=== PATIENT | female | born 1970 | race Caucasian/White ===

== ENCOUNTER 2016-11-02 16:03 | Emergency (ER) | payer SELFPAY ==
--- NOTE | 2016-11-02 16:29 | Emergency Department Record ---
History of Present Illness - General Chief complaint: Lower Extremity Pain Stated complaint: LEFT LEG PAIN Time Seen by Provider: 11/02/16 16:27 Source: Patient Mode of Arrival: Ambulatory Limitations: No limitations - History of Present Illness Initial comments: 45 yo female presents to ED with a CC of redness and possible bite to the left lower extremity. Patient reports redness to the area that has spread from initial "bite area" 2 days ago, denies fevers, chills, or drainage from the area. Patient denies health problems at her baseline. MD Complaint: Extremity pain Onset/Timin -: Days(s) Location: Left, Lower Leg History of Same: No Radiation: Proximal Severity scale (1-10): 2 Quality: Aching Improves with: Rest Worsens with: Nothing Associated Symptoms: Denies other symptoms - Related Data Previous Rx's Medication Instructions Recorded Clindamycin HCl [Cleocin HCl] 300 mg PO QID #28 capsule 11/02/16 Allergies Allergy/AdvReac Type Severity Reaction Status Date / Time acetaminophen [From Vicodin] Allergy HIVES Verified 11/02/16 16:20 hydrocodone bitartrate Allergy HIVES Verified 11/02/16 16:20 [From Vicodin] Travel Screening - Travel/Exposure Within Last 30 Days Have you traveled within the last 30 days?: No - Travel/Exposure Within Last Year Have you traveled outside the [place] in the last year?: No - Additonal Travel Details Have you been exposed to anyone with a communicable illness?: No - Travel Symptoms Symptom Screening: None Review of Systems Constitutional: Denies: Chills, Fever, Malaise, Night sweats Eyes: Denies: Eye discharge, Eye pain ENT: Denies: Congestion, Ear pain, Epistaxis Respiratory: Denies: Cough, Dyspnea Cardiovascular: Denies: Chest pain, Dyspnea on exertion Endocrine: Denies: Fatigue, Heat or cold intolerance Gastrointestinal: Denies: Abdominal pain, Nausea, Vomiting Genitourinary: Denies: Dysuria, Frequency, Hematuria, Incontinence Musculoskeletal: Denies: Arthralgia, Back pain, Gout, Joint swelling Skin: Reports: Change in color. Denies: Bruising, Change in hair/nails Neurological: Denies: Abnormal gait, Confusion, Headache, Seizure Psychiatric: Denies: Anxiety Hematological/Lymphatic: Denies: Anemia, Blood Clots Past Medical History - SOCIAL HISTORY Smoking Status: Current every day smoker Alcohol Use: None Drug Use: None - RESPIRATORY Hx Respiratory Disorders: No - CARDIOVASCULAR Hx Cardio Disorders: No - NEURO Hx Neuro Disorders: No Hx Headaches: Yes (migraines) - GI Hx GI Disorders: No - Hx Genitourinary Disorders: No - ENDOCRINE Hx Endocrine Disorders: No - MUSCULOSKELETAL Hx Musculoskeletal Disorders: Yes Hx Arthritis: Yes (hands and shoulders) - PSYCH Hx Psych Problems: Yes Hx Anxiety: Yes - HEMATOLOGY/ONCOLOGY Hx Hematology/Oncology Disorders: No Family Medical History Any Significant Family History?: Yes Family Hx Comment (NOT TO BE USED IN PLACE OF ITEMS BELOW): Mom has brain tumor Hx Cancer: Brother/Sister Hx Diabetes: Brother/Sister Hx Resp Disorders: Brother/Sister Physical Exam - General General Appearance: Alert, Oriented x3, Cooperative, No acute distress (smiling , well appearing on examination) Limitations: No limitations - Head Head exam: Atraumatic, Normocephalic, Normal inspection Head exam detail: negative: Abrasion, Contusion, Lucio's sign, General tenderness, Hematoma, Laceration - Eye Eye exam: Normal appearance. negative: Conjunctival injection, Periorbital swelling, Periorbital tenderness, Scleral icterus - ENT Ear exam: negative: Auricular hematoma, Auricular trauma Nasal Exam: negative: Active bleeding, Discharge, Dried blood, Foreign body Mouth exam: negative: Drooling, Laceration, Muffled voice, Tongue elevation - Neck Neck exam: Normal inspection. negative: Meningismus, Tenderness - Respiratory Respiratory exam: Normal lung sounds bilaterally. negative: Rales, Respiratory distress, Rhonchi, Stridor - Cardiovascular Cardiovascular Exam: Regular rate, Normal rhythm, Normal heart sounds - GI/Abdominal GI/Abdominal exam: Soft. negative: Rebound, Rigid, Tenderness - Rectal Rectal exam: Deferred - exam: Deferred - Extremities Extremities exam: Other (0.25 cm lesion to the lateral left infrapatellar region with mild erythema surrounding the area, no induration or fluctuance present.). negative: Calf tenderness, Pedal edema, Tenderness - Back Back exam: Reports: Normal inspection. Denies: CVA tenderness (R), CVA tenderness (L) - Neurological Neurological exam: Alert, Normal gait, Oriented X3 - Psychiatric Psychiatric exam: Normal affect, Normal mood - Skin Skin exam: Erythema. negative: Abrasion Distribution of rash: LLE Description of rash: Erythematous, Macular Course Vital Signs 11/02/16 16:15 Temperature 98.0 F Pulse Rate 94 H Respiratory 20 Rate Blood Pressure 115/77 Pulse Ox 97 - Reevaluation(s) Reevaluation #1: 11/02/16 16:35 Symptoms appear c/w mild cellulitis, will initiate treatment with Clindamycin with instructions for follow-up in 3-5 days with her primary care provider. Patient is otherwise well appearing and stable for discharge at this time. Disposition Disposition: Discharge Clinical Impression: Cellulitis and abscess of left leg Disposition: Home, Self-Care Condition: (2) Stable Instructions: Cellulitis (ED) Additional Instructions: Return to ED if your symptoms worsen or if you have any concerns. Clindamycin as directed. Follow-up with your family doctor in 3-5 days as directed. Prescriptions: Clindamycin HCl [Cleocin HCl] 300 mg PO QID #28 capsule Forms: Patient Portal Access Time of Disposition: 16:29
== END 2016-11-02 16:37 | disposition home or self-care (01) ==
LOC: ER 16:03
DX: L03.116 Cellulitis of left lower limb (principal)
CPT/HCPCS: 99282

== ENCOUNTER 2017-01-31 18:24 | Emergency (ER) | payer SELFPAY ==
--- NOTE | 2017-01-31 18:39 | Emergency Department Record ---
History of Present Illness - General Chief Complaint: Cough Stated Complaint: COUGH Time Seen by Provider: 01/31/17 18:32 Source: Patient Mode of Arrival: Ambulatory Limitations: No limitations - History of Present Illness Initial Comments: The patient is here due to a cough for almost 2 weeks. She does have intermittent sputum production but denies any CP, SOB, or fever. Her significant other was recently diagnosed with bronchitis and got better with a Zpak. Complaint: Cough, Nasal congestion Onset/Timin -: Week(s) Severity: Mild Severity scale (1-10): 4 Consistency: Constant - Related Data Previous Rx's Medication Instructions Recorded Albuterol Sulfate [Proair Hfa] 2 puff IH QID PRN #1 inhaler 01/31/17 Azithromycin [Zithromax] 250 mg PO ASDIR #6 tab 01/31/17 Allergies Allergy/AdvReac Type Severity Reaction Status Date / Time acetaminophen [From Vicodin] Allergy HIVES Verified 11/02/16 16:20 hydrocodone bitartrate Allergy HIVES Verified 11/02/16 16:20 [From Vicodin] Travel Screening - Travel/Exposure Within Last 30 Days Have you traveled within the last 30 days?: No Review of Systems Constitutional: Reports: Malaise. Denies: Chills, Fever Eyes: Denies: Eye discharge ENT: Reports: Congestion Respiratory: Reports: Cough. Denies: Dyspnea, Hemoptysis Past Medical History - SOCIAL HISTORY Smoking Status: Current every day smoker Alcohol Use: Rare Drug Use: None - RESPIRATORY Hx Respiratory Disorders: No - CARDIOVASCULAR Hx Cardio Disorders: No - NEURO Hx Neuro Disorders: Yes Hx Headaches: Yes (migraines) - GI Hx GI Disorders: No - Hx Genitourinary Disorders: No - ENDOCRINE Hx Endocrine Disorders: No - MUSCULOSKELETAL Hx Musculoskeletal Disorders: Yes Hx Arthritis: Yes (hands and shoulders) - PSYCH Hx Psych Problems: Yes Hx Anxiety: Yes - HEMATOLOGY/ONCOLOGY Hx Hematology/Oncology Disorders: No Family Medical History Any Significant Family History?: Yes Family Hx Comment (NOT TO BE USED IN PLACE OF ITEMS BELOW): Mom has brain tumor Hx Cancer: Brother/Sister Hx Diabetes: Brother/Sister Hx Resp Disorders: Brother/Sister Physical Exam - General General Appearance: Alert, Oriented x3, Cooperative, No acute distress - Head Head exam: Atraumatic, Normocephalic, Normal inspection - Eye Eye exam: Normal appearance, PERRL - Neck Neck exam: Normal inspection, Full ROM. negative: Tenderness - Respiratory Respiratory exam: Normal lung sounds bilaterally. negative: Accessory muscle use, Chest wall tenderness, Rales, Respiratory distress, Rhonchi, Stridor - Cardiovascular Cardiovascular Exam: Regular rate, Normal rhythm, Normal heart sounds - GI/Abdominal GI/Abdominal exam: Soft, Normal bowel sounds. negative: Tenderness - Extremities Extremities exam: Normal inspection, Full ROM, Normal capillary refill. negative: Tenderness Course Vital Signs 01/31/17 18:28 Temperature 97.6 F Pulse Rate 91 H Respiratory 20 Rate Blood Pressure 121/69 Pulse Ox 95 - Reevaluation(s) Reevaluation #1: I explained to the patient she should stop smoking and I do believe she could benefit from the oral Abx and an inhaller. 01/31/17 18:38 Disposition Disposition: Discharge Clinical Impression: Bronchitis Disposition: Home, Self-Care Condition: (1) Good Instructions: Cold Symptoms (ED) Additional Instructions: Please take the Zpak and Albuterol as directed. Please stop smoking. Please see your PCP if not better in 3 days. Return to the ER for any increasing cough, fever, chills, or any trouble breathing. Prescriptions: Albuterol Sulfate [Proair Hfa] 2 puff IH QID PRN #1 inhaler PRN Reason: Cough And Difficulty Breathing Azithromycin [Zithromax] 250 mg PO ASDIR #6 tab Forms: Patient Portal Access Time of Disposition: 18:39 Quality - Quality Measures Quality Measures: N/A - Blood Pressure Screening View Details: Yes Blood Pressure Classification: Pre-Hypertensive BP Reading Systolic Measurement: 121 Diastolic Measurement: 69 Screening for High Blood Pressure: < Pre-Hypertensive BP, F/U Documented > [ G8950] Pre-Hypertensive Follow-up Interventions: Follow-up with rescreen every year.
== END 2017-01-31 18:46 | disposition home or self-care (01) ==
LOC: ER 18:24
DX: J20.9 Acute bronchitis, unspecified (principal); F17.210 Nicotine dependence, cigarettes, uncomplicated
CPT/HCPCS: 99282

== ENCOUNTER 2018-07-15 16:58 | Emergency (ER) | payer SELFPAY ==
--- NOTE | 2018-07-15 17:53 | Emergency Department Record ---
History of Present Illness - General Chief complaint: Swelling of legs Stated complaint: ABDOMINAL SWELLING Time Seen by Provider: 07/15/18 17:49 Source: Patient Mode of Arrival: Wheelchair Limitations: No limitations - History of Present Illness Initial comments: 47 yo female presents to ED for evaluation of lower extremity swelling "extending up to the abdomen". Patient denies previous history of symptoms, reports that her symptoms began 2 days ago. Patient denies health problems at her baseline but has not seen a PCP in several years. Patient denies chest discomfort or difficulty in breathing. MD Complaint: Extremity swelling Onset/Timin -: Days(s) Location: Bilateral, Ankle, Foot History of Same: No Consistency: Constant, Other ("feels tight") Improves with: Nothing Worsens with: Nothing Associated Symptoms: Rash - Related Data Previous Rx's Medication Instructions Recorded Albuterol Sulfate [Proair Hfa] 2 puff IH QID PRN #1 inhaler 01/31/17 Allergies Allergy/AdvReac Type Severity Reaction Status Date / Time acetaminophen [From Vicodin] Allergy HIVES Verified 11/02/16 16:20 hydrocodone bitartrate Allergy HIVES Verified 11/02/16 16:20 [From Vicodin] Travel Screening - Travel/Exposure Within Last 30 Days Have you traveled within the last 30 days?: No - Travel/Exposure Within Last Year Have you traveled outside the [place] in the last year?: No - Additonal Travel Details Have you been exposed to anyone with a communicable illness?: No - Travel Symptoms Symptom Screening: Rash Review of Systems Constitutional: Denies: Chills, Fever, Malaise, Night sweats Eyes: Denies: Eye discharge, Eye pain, Photophobia ENT: Denies: Congestion, Ear pain, Epistaxis Respiratory: Denies: Cough, Dyspnea Cardiovascular: Reports: Edema. Denies: Chest pain, Dyspnea on exertion Endocrine: Denies: Fatigue, Heat or cold intolerance Gastrointestinal: Reports: Other ("abdominal swelling"). Denies: Abdominal pain , Nausea, Vomiting Genitourinary: Denies: Incontinence, Retention Musculoskeletal: Denies: Arthralgia, Back pain, Gout, Joint swelling Skin: Denies: Bruising, Change in color Neurological: Denies: Abnormal gait, Confusion, Headache, Tingling, Tremors Psychiatric: Denies: Anxiety Hematological/Lymphatic: Denies: Anemia, Blood Clots Past Medical History - SOCIAL HISTORY Smoking Status: Current every day smoker Alcohol Use: None Drug Use: None - RESPIRATORY Hx Respiratory Disorders: No - CARDIOVASCULAR Hx Cardio Disorders: No - NEURO Hx Neuro Disorders: Yes Hx Headaches: Yes (migraines) - GI Hx GI Disorders: No Comment:: patient c/o abdominal pain today 07/15/18 - Hx Genitourinary Disorders: No - ENDOCRINE Hx Endocrine Disorders: No - MUSCULOSKELETAL Hx Musculoskeletal Disorders: Yes Hx Arthritis: Yes (hands and shoulders) - PSYCH Hx Psych Problems: Yes Hx Anxiety: Yes - HEMATOLOGY/ONCOLOGY Hx Hematology/Oncology Disorders: No Family Medical History Any Significant Family History?: Yes Family Hx Comment (NOT TO BE USED IN PLACE OF ITEMS BELOW): Mom has brain tumor Hx Cancer: Brother/Sister Hx Diabetes: Brother/Sister Hx Resp Disorders: Brother/Sister Physical Exam - General General Appearance: Alert, Oriented x3, Cooperative, No acute distress Limitations: No limitations - Head Head exam: Atraumatic, Normocephalic, Normal inspection Head exam detail: negative: Abrasion, Contusion, Lucio's sign, General tenderness, Hematoma, Laceration - Eye Eye exam: Normal appearance. negative: Conjunctival injection, Periorbital swelling, Periorbital tenderness, Scleral icterus - ENT Ear exam: negative: Auricular hematoma, Auricular trauma Nasal Exam: negative: Active bleeding, Discharge, Dried blood, Foreign body Mouth exam: negative: Drooling, Laceration, Muffled voice, Tongue elevation - Neck Neck exam: Normal inspection. negative: Meningismus, Tenderness - Respiratory Respiratory exam: Normal lung sounds bilaterally. negative: Respiratory distress, Rhonchi, Stridor, Wheezes - Cardiovascular Cardiovascular Exam: Regular rate, Normal rhythm, Normal heart sounds - GI/Abdominal GI/Abdominal exam: Soft. negative: Distended, Rebound, Rigid, Tenderness - Rectal Rectal exam: Deferred - exam: Deferred - Extremities Extremities exam: Pedal edema (1+ bilateral edema). negative: Calf tenderness, Tenderness - Back Back exam: Denies: CVA tenderness (R), CVA tenderness (L) - Neurological Neurological exam: Alert, Normal gait, Oriented X3 - Psychiatric Psychiatric exam: Normal affect, Normal mood - Skin Skin exam: Normal color. negative: Abrasion Type of lesion: negative: abrasion Course Vital Signs 07/15/18 17:02 Temperature 98.0 F Pulse Rate 56 L Respiratory 18 Rate Blood Pressure 143/90 Pulse Ox 99 - Reevaluation(s) Reevaluation #1: 07/15/18 18:16 EKG: NSR 50 Normal axis, normal intervals No acute ST-T wave changes Reevaluation #2: 07/15/18 18:20 Laboratory studies were reviewed, BNP 527, labs are otherwise grossly unremarkable for an acute process. Renal function appears normal Examination appears c/w mild pedal. Discussed with the patient treatment including elevation as well as the importance of establishing with a PCP for further evaluation. Patient appears stable for discharge at this time. Medical Decision Making - Lab Data Result diagrams: 07/15/18 17:00 07/15/18 17:00 Disposition Disposition: Discharge Clinical Impression: Pedal edema Disposition: Home, Self-Care Condition: (2) Stable Instructions: Leg Edema (ED) Additional Instructions: Return to ED if your symptoms worsen or if you have any concerns. Elevated lower extremities to reduce swelling. Follow-up with a primary care provider from the list given for further evaluation of your symptoms. Forms: Patient Portal Access Time of Disposition: 18:22 Quality - Quality Measures Quality Measures: N/A - Blood Pressure Screening Does Patient Have Any of the Following: No Blood Pressure Classification: Hypertensive Reading Systolic Measurement: 143 Diastolic Measurement: 90 Screening for High Blood Pressure: < First Hypertensive BP, F/U Documented > [ G8950] First Hypertensive Follow-up Interventions: Referral to alternative/primary care provider.
[2018-07-15 17:57] LABS: BASO % 0.2 % (0-6); EOS % 1.2 % (0-6); HEMATOCRIT 36.6 % (35.0-47.0); HEMOGLOBIN 11.9 gm/dl (11.6-16.0); LYMPH % 23.9 % (16-45); MEAN CELL VOLUME 96.3 fl (81-97); MEAN CORPUSCULAR HEMOGLOBIN 31.3 pg (27-33); MEAN CORPUSCULAR HGB CONC 32.5 g/dl (32-36); MEAN PLATELET VOLUME 10.3 fl (7.4-10.4); MONO % 8.7 % (0-9); PLATELET COUNT 289 K/uL (130-400); RED CELL DISTRIBUTION WIDTH 13.3 % (11.5-14.5)
[2018-07-15 18:09] LABS: BLOOD UREA NITROGEN 8 mg/dL (6-20); CREATININE 0.5 mg/dL (0.5-0.9); EST GLOMERULAR FILTRATION RATE > 60 mL/min
[2018-07-15 18:10] LABS: TOTAL PROTEIN 6.7 g/dL (6.6-8.7)
[2018-07-15 18:12] LABS: GLUCOSE,RANDOM 95 mg/dL (74-109)
[2018-07-15 18:14] LABS: ALB/GLOB RATIO 1.3 (1.1-1.8); ALBUMIN 3.8 g/dL (4.0-5.0); ALT/SGPT 45 U/L (<33); AST/SGOT 20 U/L (10.0-35.0)
[2018-07-15 18:15] LABS: ALKALINE PHOSPHATASE 50 U/L (45-87)
== END 2018-07-15 18:35 | disposition home or self-care (01) ==
LOC: ER 16:58
DX: R60.0 Localized edema (principal); R10.9 Unspecified abdominal pain; R06.02 Shortness of breath; R11.0 Nausea; R21 Rash and other nonspecific skin eruption; F17.210 Nicotine dependence, cigarettes, uncomplicated
CPT/HCPCS: 80053; 83880; 84484; 85025; 93005; 93010; 99284

== ENCOUNTER 2018-07-17 15:41 | Emergency (ER) | payer SELFPAY ==
[2018-07-17] MEDS ORDERED: IPRATROPIUM/ALBUTEROL (0.5MG/3MG) NEB INH ONE (16:05)
[2018-07-17 16:20] LABS: HEMATOCRIT 34.7 % (35.0-47.0); HEMOGLOBIN 11.3 gm/dl (11.6-16.0); MEAN CELL VOLUME 96.4 fl (81-97); MEAN CORPUSCULAR HGB CONC 32.6 g/dl (32-36); PLATELET COUNT 251 K/uL (130-400); RED CELL DISTRIBUTION WIDTH 13.3 % (11.5-14.5); WHITE BLOOD COUNT W/O DIFF 5.3 K/uL (4.2-12.2)
[2018-07-17 16:22] LABS: MEAN CORPUSCULAR HEMOGLOBIN 31.3 pg (27-33)
[2018-07-17 16:31] LABS: PLATELET ESTIMATE NORMAL (NORMAL)
[2018-07-17 16:32] LABS: BLOOD UREA NITROGEN 10 mg/dL (6-20); CREATININE 0.6 mg/dL (0.5-0.9); EST GLOMERULAR FILTRATION RATE > 60 mL/min
[2018-07-17 16:33] LABS: TOTAL PROTEIN 6.8 g/dL (6.6-8.7)
[2018-07-17 16:35] LABS: GLUCOSE,RANDOM 95 mg/dL (74-109)
[2018-07-17 16:37] LABS: ALB/GLOB RATIO 1.3 (1.1-1.8); ALBUMIN 3.9 g/dL (4.0-5.0); ALT/SGPT 145 U/L (<33); AST/SGOT 133 U/L (10.0-35.0)
[2018-07-17 16:38] LABS: ALKALINE PHOSPHATASE 81 U/L (45-87)
--- NOTE | 2018-07-17 17:01 | Emergency Department Record ---
History of Present Illness - General Chief Complaint: Shortness of breath Stated Complaint: TROY Time Seen by Provider: 07/17/18 15:56 Source: Patient Mode of Arrival: Ambulatory Limitations: No limitations - History of Present Illness Initial Comments: pt here for sob and swelling of her extremities and abd/. it has been getting progressively worse. she has not seen a dr for 20 yrs. she was here 2 days ago for the same MD Complaint: Shortness of breath Onset/Timin -: Days(s) Consistency: Constant Improves With: Nothing Known History Of: Asthma Associated Symptoms: Cough, Orthopnia, Other Treatments Prior to Arrival: Other Treatment Prior to Arrival Comment:: took a friends steriod inhaler - Related Data Home Oxygen Therapy: No Previous Rx's Medication Instructions Recorded Albuterol Sulfate [Proair Hfa] 2 puff IH QID PRN #1 inhaler 01/31/17 Allergies Allergy/AdvReac Type Severity Reaction Status Date / Time acetaminophen [From Vicodin] Allergy HIVES Verified 11/02/16 16:20 hydrocodone bitartrate Allergy HIVES Verified 11/02/16 16:20 [From Vicodin] Travel Screening - Travel/Exposure Within Last 30 Days Have you traveled within the last 30 days?: No - Travel/Exposure Within Last Year Have you traveled outside the [place] in the last year?: No - Additonal Travel Details Have you been exposed to anyone with a communicable illness?: No - Travel Symptoms Symptom Screening: None Review of Systems Reviewed: No additional complaints except as noted below Constitutional: Reports: As per HPI, Weakness. Denies: Chills, Fever, Malaise, Night sweats, Weight change Eyes: Reports: As per HPI. Denies: Eye discharge, Eye pain, Photophobia, Vision change ENT: Reports: As per HPI. Denies: Congestion, Dental pain, Ear pain, Epistaxis , Hearing loss, Throat pain Respiratory: Reports: As per HPI, Cough, Dyspnea, Hemoptysis. Denies: Stridor, Wheezes Cardiovascular: Reports: As per HPI, Dyspnea on exertion, Edema. Denies: Arrhythmia, Chest pain, Murmurs, Orthopnea, Palpitations, Paroxysmal nocturnal dyspnea, Rheumatic Fever, Syncope Endocrine: Reports: As per HPI. Denies: Fatigue, Heat or cold intolerance, Polydipsia, Polyuria Gastrointestinal: Reports: As per HPI, Abdominal pain. Denies: Constipation, Diarrhea, Hematemesis, Hematochezia, Melena, Nausea, Vomiting Genitourinary: Reports: As per HPI. Denies: Abnormal menses, Discharge, Dyspareunia, Dysuria, Frequency, Hematuria, Incontinence, Retention, Urgency Musculoskeletal: Reports: As per HPI. Denies: Arthralgia, Back pain, Gout, Joint swelling, Myalgia, Neck pain Skin: Reports: As per HPI. Denies: Bruising, Change in color, Change in hair/ nails, Lesions, Pruritus, Rash Neurological: Reports: As per HPI. Denies: Abnormal gait, Confusion, Headache, Numbness, Paresthesias, Seizure, Tingling, Tremors, Vertigo, Weakness Psychiatric: Reports: As per HPI. Denies: Anxiety, Auditory hallucinations, Depression, Homicidal thoughts, Suicidal thoughts, Visual hallucinations Hematological/Lymphatic: Reports: As per HPI. Denies: Anemia, Blood Clots, Easy bleeding, Easy bruising, Swollen glands Past Medical History - SOCIAL HISTORY Smoking Status: Current every day smoker Alcohol Use: None Drug Use: None - RESPIRATORY Hx Respiratory Disorders: No - CARDIOVASCULAR Hx Cardio Disorders: No - NEURO Hx Neuro Disorders: Yes Hx Headaches: Yes (migraines) - GI Hx GI Disorders: No - Hx Genitourinary Disorders: No - ENDOCRINE Hx Endocrine Disorders: No - MUSCULOSKELETAL Hx Musculoskeletal Disorders: Yes Hx Arthritis: Yes (hands and shoulders) - PSYCH Hx Psych Problems: Yes Hx Anxiety: Yes Hx Depression: Yes - HEMATOLOGY/ONCOLOGY Hx Hematology/Oncology Disorders: No Family Medical History Any Significant Family History?: Yes Family Hx Comment (NOT TO BE USED IN PLACE OF ITEMS BELOW): Mom has brain tumor Hx Cancer: Brother/Sister Hx Diabetes: Brother/Sister Hx Resp Disorders: Brother/Sister Physical Exam - General General Appearance: Alert, Oriented x3, Cooperative, Mild distress - Head Head exam: Normal inspection - Eye Eye exam: Normal appearance, PERRL, EOMI Pupils: Normal accommodation - ENT ENT exam: Normal exam, Mucous membranes moist, Normal external ear exam, Normal orophraynx Ear exam: Normal external inspection. negative: External canal tenderness Nasal Exam: Normal inspection. negative: Discharge, Sinus tenderness Mouth exam: Normal external inspection, Tongue normal Teeth exam: Normal inspection. negative: Dental caries Throat exam: Normal inspection. negative: Tonsillar erythema, Tonsillar exudate - Neck Neck exam: Normal inspection, Full ROM. negative: Tenderness - Respiratory Respiratory exam: Decreased breath sounds, Respiratory distress - Cardiovascular Cardiovascular Exam: Regular rate, Normal rhythm, Normal heart sounds - GI/Abdominal GI/Abdominal exam: Soft, Normal bowel sounds. negative: Tenderness - Rectal Rectal exam: Deferred - exam: Deferred - Extremities Extremities exam: Normal inspection, Full ROM, Normal capillary refill, Pedal edema. negative: Tenderness - Back Back exam: Reports: Normal inspection, Full ROM. Denies: Muscle spasm, Rash noted, Tenderness - Neurological Neurological exam: Alert, CN II-XII intact, Normal gait, Oriented X3 - Psychiatric Psychiatric exam: Normal affect, Normal mood - Skin Skin exam: Dry, Intact, Normal color, Warm Course Vital Signs 07/17/18 07/17/18 07/17/18 15:44 16:19 16:25 Temperature 97.8 F Pulse Rate 62 54 L Pulse Rate [ Pulse Ox Probe] Respiratory 24 26 H Rate Blood Pressure 104/64 Blood Pressure [Left Arm] Pulse Ox 94 L 92 L 92 L 07/17/18 16:34 Temperature Pulse Rate Pulse Rate [ 60 Pulse Ox Probe] Respiratory 30 H Rate Blood Pressure Blood Pressure 114/69 [Left Arm] Pulse Ox 95 - Reevaluation(s) Reevaluation #1: 07/17/18 19:[address] neg, ct chest no PE Medical Decision Making - Lab Data Result diagrams: 07/17/18 16:10 07/17/18 16:10 Lab Results 07/17/18 07/17/18 07/17/18 Range/Units 16:10 16:10 16:10 WBC 5.3 (4.2-12.2) K/uL RBC 3.60 L (3.80-5.40) M/uL Hgb 11.3 L (11.6-16.0) gm/dl Hct 34.7 L (35.0-47.0) % MCV 96.4 (81-97) fl MCH 31.3 (27-33) pg MCHC 32.6 (32-36) g/dl RDW 13.3 (11.5-14.5) % Plt Count 251 (130-400) K/uL MPV 10.0 (7.4-10.4) fl Neutrophils % 89.0 H (47-80) % Band Neutrophils % 3.0 (0-5) % Eosinophils % Not Reportable Basophils % Not Reportable Lymphocytes 3.0 L (16-45) % Monocytes 4.0 (0-9) % Platelet Estimate Normal (NORMAL) RBC Morphology Normal Eosinophil Count 1.0 (0-6) % D-Dimer 1.59 H (0-0.59) mg/L FEU Sodium 139 (136-145) mmol/L Potassium 4.2 (3.4-4.5) mmol/L Chloride 101 (98-107) mmol/L Carbon Dioxide 24.0 (22-29) mmol/L Anion Gap 14.0 (7-16) BUN 10 (6-20) mg/dL Creatinine 0.6 (0.5-0.9) mg/dL Estimated GFR > 60 mL/min Random Glucose 95 (74-109) mg/dL Calcium 8.7 (8.6-10.0) mg/dL Total Bilirubin 0.20 (0.2-1.0) mg/dL AST 133 H (10.0-35.0) U/L ALT 145 H (<33) U/L Alkaline Phosphatase 81 (45-87) U/L NT-Pro-B Natriuret Pep 885.60 H (<125) pg/mL Total Protein 6.8 (6.6-8.7) g/dL Albumin 3.9 L (4.0-5.0) g/dL Globulin 2.9 (1.4-4.8) gm/dL Albumin/Globulin Ratio 1.3 (1.1-1.8) Disposition Disposition: Transfer Clinical Impression: Hemoptysis, Elevated liver enzymes, Respiratory distress Edema Qualifiers: Edema type: unspecified Qualified Code(s): R60.9 - Edema, unspecified Disposition: Acute Care Hospital Transfer Transfer To: [facility] Reason For Transfer: needs specialists Accepting Physician: dr kumar Time Discussed w/Accepting Physician: 19:08 Forms: Patient Portal Access Quality - Quality Measures Quality Measures: N/A - Blood Pressure Screening Does Patient Have Any of the Following: No Blood Pressure Classification: Normal BP Reading Systolic Measurement: 104 Diastolic Measurement: 64 Screening for High Blood Pressure: < Normal BP, F/U Not Required > [G8783]
[2018-07-17] MEDS ORDERED: METHYLPREDNISOLONE PF 125MG/VIAL IVP ONE (18:50)
--- NOTE | 2018-07-19 22:11 | CT ANGIOGRAM REPORT ---
EXAM: CT ANGIOGRAM CHEST CTA w contrast HISTORY: ACUTE SHORTNESS OF BREATH. BILATERAL LOWER EXTREMITY SWELLING. ELEVATED D-DIMER. TECHNIQUE: CT angiogram of the chest following intravenous administration of 70 mL Omnipaque-350 intravenous contrast. Additional maximum-intensity projection images performed on an independent workstation. COMPARISON: CTA chest 11/10/2014. FINDINGS: Adequate opacification of the pulmonary arteries to the subsegmental level. No pulmonary artery filling defects are seen to suggest embolism. No significant pericardial fluid collection. No evidence of thoracic aortic aneurysm or dissection. Mildly enlarged 1.5 cm in short axis right hilar lymph node, overall similar from 2015 comparison. Additional areas of relatively prominent lymphoid tissue in the right hilar region appears similar from prior examination. Nodular ground-glass opacities throughout the left lower lobe, new from prior examination. Similar, more mild ground-glass opacities in the right upper lobe, right middle lobe, and right lower lobe. No pleural effusion or pneumothorax. Unremarkable appearance of the visualized upper abdominal structures. Visualization of the upper abdomen limited by patient motion artifact. No definite acute osseous findings. IMPRESSION: 1. NO EVIDENCE OF PULMONARY EMBOLISM. 2. MULTIFOCAL PULMONARY NODULAR GROUND-GLASS OPACITIES, SEEN THROUGHOUT THE LEFT LOWER LOBE AND SCATTERED THROUGHOUT THE RIGHT LUNG SUGGESTIVE OF INFECTIOUS OR INFLAMMATORY BRONCHIOLITIS. FOLLOW-UP CT OF THE CHEST IS SUGGESTED IN APPROXIMATELY THREE MONTHS TO ASSESS FOR IMPROVEMENT/RESOLUTION. JOB NUMBER: [id number] [facility]
--- NOTE | 2018-07-19 22:23 | CT SCAN REPORT ---
EXAM: CT SCAN ABDOMEN/PELVIS WO CONTRAST HISTORY: ABDOMINAL PAIN FOLLOWING CTA OF THE CHEST. TECHNIQUE: Noncontrast CT abdomen and pelvis. COMPARISON: CTA chest 07/17/2018. FINDINGS: Opacities are partially seen in the left lower lobe, as described on previous same-day CTA of the chest. Trace nonspecific pericardial fluid. Unremarkable noncontrast appearance of the liver, gallbladder, spleen, and right adrenal gland. Mild nonspecific thickening of the left adrenal gland. Excreted contrast within the renal collecting systems bilaterally, presumably from prior CT angiography study. 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 No hydronephrosis. Abdominal aorta is nondilated. Small volume of free fluid in the pelvis. Sigmoid colon diverticulosis without evidence of acute diverticulitis. No focal colonic thickening or inflammatory change. Normal appendix. No free air. Unremarkable noncontrast appearance of the uterus. Excreted contrast within the urinary bladder. No definite acute osseous findings. IMPRESSION: 1. NO DEFINITE ACUTE FINDINGS IN THE ABDOMEN OR PELVIS. 2. SMALL VOLUME OF FREE FLUID IN THE PELVIS, NONSPECIFIC, MAY BE PHYSIOLOGIC. 3. SIGMOID COLON DIVERTICULOSIS WITHOUT EVIDENCE OF ACUTE DIVERTICULITIS. 4. LEFT LOWER LOBE PULMONARY OPACITIES, SEEN ON PREVIOUS SAME-DAY CTA OF THE CHEST. JOB NUMBER: [id number] [facility]
== END 2018-07-17 21:13 | disposition short-term general hospital (02) ==
LOC: ER 15:41
DX: R04.2 Hemoptysis (principal); R06.03 Acute respiratory distress; R60.0 Localized edema; R94.5 Abnormal results of liver function studies; F17.210 Nicotine dependence, cigarettes, uncomplicated
CPT/HCPCS: 99285 ×2; 96374; 80053; 84443; 85379; 85027; 83880; 71275; 74176; 94640; 93005; 93010; Q9967; J2930